=== PATIENT | male | born 1990 | race Two or more races ===

== ENCOUNTER 2020-09-18 21:05 | Emergency (ER) | payer SELFPAY ==
[~2020-09-18] VITALS: Ht 177.8 cm; Wt 74.2 kg
[2020-09-18 21:53] LABS: MICROSCOPIC NOT IND
--- NOTE | 2020-09-19 00:45 | NUR ---
pt c/o of sore on inner bottom lip for last 4 days. pt states he thinks it might be a STD. attached to monitors, bp is high and pt says he hasnt been able to gets his meds. bed in [facility] [psotion, rails engaged, call light on lap. rashad. [facility]ctm.
[2020-09-19] MEDS ORDERED: BICILLIN-LA 2,400,000 UNITS/4 ML IM ONE (01:00)
[2020-09-19 01:36] VITALS: BP 164/110
== END 2020-09-19 02:03 | disposition home or self-care (01) ==
LOC: ED 21:35
DX: A53.9 Syphilis, unspecified (principal)
CPT/HCPCS: 36415; 81003; 86592; 86780; 87491; 87591; 96372; 99283; J0561

== ENCOUNTER 2020-10-01 17:59 | Emergency (ER) | payer MEDICAID ==
--- NOTE | 2020-10-01 18:52 | NUR ---
COMPUTER NETWORKER: NO ANSWER AT THIS TIME.
--- NOTE | 2020-10-01 19:17 | NUR ---
PIZZAMAKER: NO ANSWER AT THIS TIME.
--- NOTE | 2020-10-01 19:36 | NUR ---
PATROL AGENT: NOT IN LOBBY WHEN CALLED FOR TRIAGE. PTP ASSUMED TO HAVE LEFT. AUDIO PRODUCTION ENGINEER AWARE.
== END 2020-10-01 19:37 | disposition left against medical advice (07) ==
LOC: ED 18:30
DX: R21 Rash and other nonspecific skin eruption (principal); Z53.21 Procedure and treatment not carried out due to patient leaving prior to being seen by health care provider